=== PATIENT | male | born 1960 | race Caucasian/White ===

== ENCOUNTER 2019-04-05 10:28 | Outpatient (CLI) | payer BC ==
[~2019-04-05 10:28] MED LIST: ALIS1TAB3 PO; ASPI-496 PO; CHOL100012 PO; EZET10TA70 PO; GABA600T7 PO; IBUP-1222 PO; METH750T2 PO; NIAC750T11 PO; ROSU10TA2 PO; UBID100C24 PO
[2019-04-05 11:30] LABS: BASOPHILS # (AUTO) 0.02 x10^3/uL (0-0.1); BASOPHILS % (AUTO) 0 % (0-1); EOSINOPHILS # (AUTO) 0.05 x10^3/uL (0-0.4); EOSINOPHILS % (AUTO) 1 % (1-7); LYMPHOCYTES % (AUTO) 26 % (22-44); MD NO; MEAN CORPUSCULAR HEMOGLOBIN 32.6 pg (27.5-34.5); MEAN CORPUSCULAR HGB CONC 33.8 g/dL (33.2-36.2); MEAN CORPUSCULAR VOLUME 96.3 fL (81-97); MEAN PLATELET VOLUME 7.4 fL (7.4-10.4); MONOCYTES # (AUTO) 0.33 x10^3/uL (0.2-0.8); MONOCYTES % (AUTO) 6 % (2-9); NEUTROPHILS # (AUTO) 3.95 x10^3/uL (1.8-6.8); NEUTROPHILS % (AUTO) 68 % (42-75); PLATELET COUNT 231 x10^3/uL (130-400); RED BLOOD COUNT 4.87 x10^6/uL (4.38-5.82); RED CELL DISTRIBUTION WIDTH 13.7 % (9.4-14.8)
[2019-04-05 11:38] LABS: INTERNATIONAL NORMALIZED RATIO 0.97 (0.93-1.1); PROTHROMBIN TIME 10.2 Seconds (9.6-11.5)
[2019-04-05 11:43] LABS: ALBUMIN 4.4 g/dL (3.4-5.0); ANION GAP 6 mmol/L (5-15); CALCIUM 8.9 mg/dL (8.5-10.1); CHLORIDE 109 mmol/L (98-107)
[2019-04-05 11:46] LABS: ALANINE AMINOTRANSFERASE 43 U/L (12-78); ALKALINE PHOSPHATASE 86 U/L (45-117); BILIRUBIN,TOTAL 0.7 mg/dL (0.2-1.0); CREATININE 1.15 mg/dL (0.7-1.3)
[2019-04-05] MEDS ORDERED: HYDR-2440 PO (11:53)
[2019-04-05] MEDS ORDERED: ZOLP10TA5 PO (11:53)
[2019-04-05] MEDS ORDERED: ALPR0.5T7 PO (11:53)
[2019-04-05 12:45] LABS: HEMOGLOBIN A1C 4.7 % (4.2-6.3)
== END 2019-04-05 23:59 | disposition home or self-care (01) ==
LOC: STAR 10:28
PROVIDERS: ATTEND Orthopaedic Surgery
DX: Z01.818 Encounter for other preprocedural examination (principal); M16.12 Unilateral primary osteoarthritis, left hip
CPT/HCPCS: 36415; 80053; 83036; 85025; 85610; 85730; 87081; 87147; 93005

== ENCOUNTER 2019-04-14 09:58 | Inpatient (IN) | payer BC ==
[~2019-04-14] VITALS: Ht 167.6 cm; Wt 109.2 kg
[~2019-04-14 09:58] MED LIST changes: +ALPR0.5T7 PO; +EPINEPHRINE 1 MG/ML, 1ML ONE; +HYDR-2440 PO; +KETOROLAC 60 MG/2 ML ONE; +ROPIvacaine/PF 0.5%, 20 ML ONE; +SODIUM CHLORIDE 0.9% 100 ML ONE; +TRANEXAMIC ACID 100 MG/ML, 10ML ONE; +VANCOMYCIN 1,000 MG ONE; +ZOLP10TA5 PO
[2019-04-14] MEDS ORDERED: MAGNESIUM HYDROXIDE 8%, 30ML UDC PO PRN (10:30)
[2019-04-14] MEDS ORDERED: DIPHENHYDRAMINE 50 MG CAPSULE PO PRN (10:30)
[2019-04-14] MEDS ORDERED: ZOLPIDEM 5MG TABLET PO PRN (10:30)
[2019-04-14] MEDS ORDERED: HYDROcodone/APAP 5/325 TABLET PO PRN (10:30)
[2019-04-14] MEDS ORDERED: SCOPOLAMINE PATCH, 1.5MG PATCH.TD72 TD ONE (10:30)
[2019-04-14] MEDS ORDERED: ACETAMINOPHEN 650 MG/20.3 ML UDC PO PRN (10:30)
[2019-04-14] MEDS ORDERED: SENNA/DOCUSATE TABLET PO PRN (10:30)
[2019-04-14] MEDS ORDERED: BISACODYL 10 MG SUPP PR PRN (10:30)
[2019-04-14] MEDS ORDERED: ONDANSETRON 4 MG TABLET PO PRN (10:30)
[2019-04-14] MEDS ORDERED: ONDANSETRON 2MG/ML, 2ML IV PRN (10:30)
[2019-04-14] MEDS ORDERED: ZOLPIDEM 10MG TABLET PO PRN (10:30)
[2019-04-14] MEDS ORDERED: LACTATED RINGERS 1,000 ML IV SCH (10:39)
[2019-04-14] MEDS ORDERED: FENTANYL PF 250 MCG/5ML ONE (10:52)
[2019-04-14] MEDS ORDERED: MIDAZOLAM 1 MG/ML, 2ML ONE (10:52)
[2019-04-14] MEDS ORDERED: GABAPENTIN 300 MG CAPSULE PO ONE (11:00)
[2019-04-14] MEDS ORDERED: LIDOCAINE-MPF 1%, 2ML INFIL ONE (11:00)
[2019-04-14] MEDS ORDERED: ACETAMINOPHEN 500 MG TABLET PO ONE (11:00)
[2019-04-14] MEDS ORDERED: ACETAMINOPHEN 500 MG TABLET ONE (11:07)
[2019-04-14] MEDS ORDERED: GABAPENTIN 300 MG CAPSULE ONE (11:07)
[2019-04-14] MEDS ORDERED: OXYcodone 5 MG/5 ML ORAL.SOL UDC PO PRN (12:00)
[2019-04-14] MEDS ORDERED: METOPROLOL 1 MG/ML, 5ML IV PRN (12:00)
[2019-04-14] MEDS ORDERED: ALBUTEROL/IPRATROPIUM 2.5MG/0.5MG, 3 ML NPPB PRN (12:00)
[2019-04-14] MEDS ORDERED: PROMETHAZINE 25 MG/ML, 1ML IV PRN (12:00)
[2019-04-14] MEDS ORDERED: MEPERIDINE/PF 25MG/ML,1ML IVPush PRN (12:00)
[2019-04-14] MEDS ORDERED: MIDAZOLAM 1 MG/ML, 2ML IV PRN (12:00)
[2019-04-14] MEDS ORDERED: FENTANYL PF 100 MCG/2ML IV PRN (12:00)
[2019-04-14] MEDS ORDERED: HYDROmorphone 2 MG/ML, 1ML IVPush PRN (12:00)
[2019-04-14] MEDS ORDERED: hydrALAzine 20 MG/ML, 1ML IV PRN (12:00)
[2019-04-14] MEDS ORDERED: ONDANSETRON 2MG/ML, 2ML ONE (12:11)
[2019-04-14] MEDS ORDERED: PROPOFOL 10 MG/ML, 20ML ONE (12:11)
[2019-04-14] MEDS ORDERED: NEOSTIGMINE 1 MG/ML, 10ML ONE (12:11)
[2019-04-14] MEDS ORDERED: CEFAZOLIN 1,000 MG ONE (12:11)
[2019-04-14] MEDS ORDERED: ROCURONIUM 10MG/ML,5ML ONE (12:11)
[2019-04-14] MEDS ORDERED: GLYCOPYRROLATE 0.2MG/1ML, 5ML ONE (12:11)
[2019-04-14] MEDS ORDERED: DEXAMETHASONE 4 MG/ML, 1ML ONE (12:11)
[2019-04-14] MEDS ORDERED: SUGAMMADEX 200 MG/2 ML IVPush ONE (12:14)
[2019-04-14] MEDS ORDERED: FENTANYL PF 100 MCG/2ML ONE ×2 (12:16→12:48)
[2019-04-14] MEDS ORDERED: HYDROcodone/APAP 7.5-325MG/15ML UDC ONE (12:49)
[2019-04-14] MEDS ORDERED: HYDROcodone/APAP 7.5-325MG/15ML UDC PO PRN (13:30)
[2019-04-14] MEDS ORDERED: DIPHENHYDRAMINE 25 MG CAPSULE PO PRN (14:30)
[2019-04-14] MEDS: METHOCARBAMOL 750 MG TABLET PO SCH ×2 (15:38→20:48)
[2019-04-14] MEDS: NS + 20MEQ KCL 1,000 ML IV SCH (15:39)
[2019-04-14 16:21] VITALS: BP 104/69
[2019-04-14] MEDS: ASPIRIN 81 MG TABLET EC PO SCH (18:35)
[2019-04-14 19:00] VITALS: BP 119/72
[2019-04-14] MEDS: CEFAZOLIN PMX 2GM/50ML 50 ML IVPB SCH (20:08)
[2019-04-14] MEDS: DOCUSATE 100 MG CAPSULE PO SCH (20:48)
[2019-04-14] MEDS: GABAPENTIN 300 MG CAPSULE PO SCH (20:49)
[2019-04-14] MEDS: OXYcodone IR 5MG TABLET PO PRN (20:52)
[2019-04-14] MEDS ORDERED: ATORVASTATIN 40 MG TABLET PO SCH (21:00)
[2019-04-14] MEDS ORDERED: ASPI-496 PO (23:00)
[2019-04-15 00:32] VITALS: BP 114/75
[2019-04-15] MEDS: NS + 20MEQ KCL 1,000 ML IV SCH (01:40)
[2019-04-15] MEDS: CEFAZOLIN PMX 2GM/50ML 50 ML IVPB SCH (03:59)
[2019-04-15 04:10] VITALS: BP 138/72
[2019-04-15] MEDS ORDERED: DEXAMETHASONE 4 MG/ML, 1ML IVPush SCH (06:00)
[2019-04-15] MEDS: ASPIRIN 81 MG TABLET EC PO SCH (06:00)
[2019-04-15] MEDS: OXYcodone IR 5MG TABLET PO PRN ×2 (06:02→10:08)
[2019-04-15 07:45] VITALS: BP 113/70
[2019-04-15] MEDS ORDERED: ALISKIREN 150 MG TABLET PO SCH (09:00)
[2019-04-15] MEDS ORDERED: TEMPLATE NON-FORMULARY MED. (Ubidecarenone (Coq-10) 300 MG) PO SCH (09:00)
[2019-04-15] MEDS ORDERED: EZETIMIBE 10 MG TABLET PO SCH (09:00)
[2019-04-15] MEDS: HYDROCHLOROTHIAZIDE 12.5 MG CAPSULE PO SCH (09:00)
[2019-04-15] MEDS: GABAPENTIN 300 MG CAPSULE PO SCH (09:20)
[2019-04-15] MEDS: METHOCARBAMOL 750 MG TABLET PO SCH (09:20)
[2019-04-15] MEDS: DOCUSATE 100 MG CAPSULE PO SCH (09:20)
[2019-04-15 12:00] VITALS: BP 136/68
== END 2019-04-15 12:25 | disposition home or self-care (01) | DRG 470 ==
LOC: ORIP 09:58 → 4NE 13:51 → DCLOUNGE 04-15 12:19
PROVIDERS: ADMIT Orthopaedic Surgery; ATTEND Orthopaedic Surgery
PROC: 0SRB06A Replacement of Left Hip Joint with Oxidized Zirconium on Polyethylene Synthetic Substitute, Uncemented, Open Approach (ICD-10-PCS; principal; 2019-04-14 11:45)
DX: M16.12 Unilateral primary osteoarthritis, left hip (principal); I25.10 Atherosclerotic heart disease of native coronary artery without angina pectoris; E78.5 Hyperlipidemia, unspecified; F41.1 Generalized anxiety disorder; I10 Essential (primary) hypertension
CPT/HCPCS: 36415; 72170; 76000; 85014; 85018; C1713; G0378; J0171; J0690; J1100; J1885; J2250; J2405; J2704; J2710; J2795; J3010; J3370; J3480; C1776; J7120

== ENCOUNTER → 2019-12-02 | Outpatient (CLI) | payer BC ==
[~2019-12-02] MED LIST changes: -EPINEPHRINE 1 MG/ML, 1ML ONE; -KETOROLAC 60 MG/2 ML ONE; +METOPROLOL 1 MG/ML, 5ML ONE; +OMNIPAQUE 350 MG/ML, 100ML BOTTLE ONE; -ROPIvacaine/PF 0.5%, 20 ML ONE; -SODIUM CHLORIDE 0.9% 100 ML ONE; -TRANEXAMIC ACID 100 MG/ML, 10ML ONE; -VANCOMYCIN 1,000 MG ONE
== END | disposition home or self-care (01) ==
LOC: CVU 10:35
PROVIDERS: ATTEND Internal Medicine Cardiovascular Disease
DX: Z01.810 Encounter for preprocedural cardiovascular examination (principal); I65.22 Occlusion and stenosis of left carotid artery; I70.0 Atherosclerosis of aorta; Q25.49 Other congenital malformations of aorta
CPT/HCPCS: 71275; 74174; 93880; 94010; 94726; 94729; Q9967

== ENCOUNTER → 2019-12-07 | Outpatient (CLI) | payer BC ==
[~2019-12-07] MED LIST changes: -METOPROLOL 1 MG/ML, 5ML ONE; -OMNIPAQUE 350 MG/ML, 100ML BOTTLE ONE
== END | disposition home or self-care (01) ==
LOC: STAR 08:00 → EDSTATUS 08:00
PROVIDERS: ATTEND Internal Medicine Cardiovascular Disease
DX: Z01.818 Encounter for other preprocedural examination (principal); Z11.59 Encounter for screening for other viral diseases
CPT/HCPCS: 36415; 87635